=== PATIENT | male | born 1965 | race Caucasian/White ===

== ENCOUNTER 2020-04-29 15:32 | Emergency (ER) | payer BC, SELFPAY ==
[2020-04-29 16:02] VITALS: BP 000/00; PULSE 0; RESP 0; TEMP -17.7; TEMP 0; O2SAT 0; BMI 41.5
[2020-04-29 16:21] VITALS: BP 139/73; PULSE 80; RESP 19; TEMP 36.8; O2SAT 98; BMI 33.5
[2020-04-29 16:24] VITALS: BP 139/73; PULSE 80; RESP 19; TEMP 36.8; O2SAT 98
--- NOTE | 2020-04-29 16:27 | HMH.EDUTC ---
[facility] [place] Clinical Impression: Cough Allergic rhinitis Qualifiers: Allergic rhinitis trigger: unspecified Allergic rhinitis seasonality: unspecified Qualified Code(s): J30.9 - Allergic rhinitis, unspecified Disposition: Home, Self-Care Condition on Discharge: Good Instructions: Cough, Allergic Rhinitis, DI for Allergic Rhinitis Additional Instructions: *Monitor Temp, Over the counter Motrin or Tylenol as directed/as needed Tylenol every 4 hours and Motrin every 6 hours (as long as your family doctor has told you that you can take it) for fever or pain. and straight to ER if unable to lower temp less than 101.0 after medication given *Warm salt water gargles may help to soothe the throat *Throat Lozenges *Warm fluids like tea with honey may help to soothe the throat *Sleep elevated *Humidifier/Vaporizer *Flonase 2 sprays in each nostril daily but be aware that it may take 2-3 days before you notice improvement Follow up IMMEDIATELY for new or worsening symptoms or no Noticeable improvement over the next 48-72 hours. 911 for difficulty breathing or swallowing Prescriptions: Fluticasone Propionate [Flonase 50mcg nasal spray 16gm] 1 spr NS DAILY #1 bottle Prescription Printed Benzonatate [Tessalon Perle 100mg Cap*] 100 mg PO TID PRN #15 cap PRN Reason: Cough Prescription Printed Referrals: PCPMonica [Primary Care Provider] - Time of Disposition: 16:39 Medical Decision Making - Kodi Inquiry Pt receiving controlled substance: No [place]odi was queried for this patient: No Vital Signs: 04/29/20 16:02 04/29/20 16:21 04/29/20 16:24 Temperature 0 F L 98.2 F 98.2 F Temperature Source Oral Oral Pulse Rate 80 Pulse Rate [Left] 0 L 80 Respiratory Rate 0 L 19 19 Blood Pressure 139/73 Blood Pressure [Right Arm] 000/00 L 139/73 Blood Pressure Mean [Right Arm] 95 Blood Pressure Source [Right Arm] Automatic Cuff Automatic Cuff Blood Pressure Position [Right Arm] Sitting Sitting 02 Sat by Pulse Oximetry 0 L 98 Oxygen Delivery Method Room Air Room Air Medical Decision Narrative: discussed COVID testing and patient declined at this time state that he is not feeling ill and recently had two negative test [facility] [place] - General Stated complaint: Chest congestion Time Seen by Provider: 04/29/20 16:27 Mode of Arrival: Ambulatory Source of Information: Patient Limitations: No Limitations Description of Symptoms (Recalled from Triage Doc. by RN): Cough, congestion HEENT Symptoms (Recalled from RN notes): No Resp Symptoms (Recalled from RN notes): Yes Skin Symptoms (Recalled from RN notes): No MS Symptoms (Recalled from RN notes): No Functional Status (Recalled from RN notes): wnl - History of Present Illness Provider Complaint: Patient states that he was on quaratine from work and has two negative test with the last being about 4-5 days ago States that he was at work and has been having problems with his allergies and he coughed and they made him leave and go get checked Denies fever, denies feeling ill, denies sore throat report clear drainage from his nose - Related Data Previous Rx's Medication Instructions Recorded Benzonatate [Tessalon Perle 100mg 100 mg PO TID PRN #15 cap 04/29/20 Cap*] Fluticasone Propionate [Flonase 1 spr NS DAILY #1 bottle 04/29/20 50mcg nasal spray 16gm] - Worker's Comp Is this a Worker's Comp case?: No Is this an [facility] Worker's Comp?: No Is this a [place] Worker's Comp?: No [facility] History - Hepatitis A Screen Drug use history?: No High risk sexual behaviors?: No History of sexually transmitted infection?: No Currently employed?: No Childcare worker?: No Do you have indoor plumbing?: Yes Do you have electricity?: Yes Attestation statement:: This patient has been screened for Hepatitis A risk factors. I have reviewed the patient's past medical history: Yes - Social History Smoking Status: Never smoker Alcohol Intake: never Occupational Status:
== END 2020-04-29 16:41 | disposition home or self-care (01) ==
PROVIDERS: Emergency Provider Nurse Practitioner
DX: J30.9 Allergic rhinitis, unspecified (principal)
CPT/HCPCS: 99201

== ENCOUNTER → 2020-08-02 13:17 | Outpatient (CLI) | payer BC, SELFPAY ==
--- NOTE | 2020-08-02 13:45 | MR_ITS ---
PROCEDURE: MR SHOULDER RT WO/W CON CLINICAL INDICATION: SOFT TISSUE MASS RT SHOULDER PT has a large soft tissue lump to the lateral rt shoulder that he states came up roughly 2 weeks ago. COMPARISON: No exams were available for comparison TECHNIQUE: Routine multiplanar multi echo sequences are performed without gadolinium enhancement. FINDINGS: There is 8x 5 by 4 cm soft tissue within the right deltoid muscle laterally. This is hyperintense on T1 and becomes hypointense on the fat sat images consistent with a lipoma. No concerning characteristics. This is smooth in nature. This is causing expansion of the muscle. Osteoarthritic changes are present involving the acromioclavicular joint. There is mild subacromial narrowing anteriorly with some thinning the supraspinatus tendon anteriorly and suggestion of a partial tear at the insertion on the greater tuberosity. The infraspinatus, subscapularis, and teres minor tendons are intact. The bicipital tendon is in place. No evidence labral tear. IMPRESSION: 1. 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 2. Acromioclavicular arthropathy with subacromial stenosis and suspected partial tear of the supraspinatus tendon anteriorly Dictated by: Jair Rose MD 08/04/2020 11:08 Jair Rose MD in [place] 08/04/2020 11:08
[2020-08-02 13:49] LABS: Blood Urea Nitrogen 15 mg/dl (9-20); Estimated Glomerular Filt Rate 78 ml/min (>60); GFR (African American) 94 ML/MIN (>60)
== END ==
PROVIDERS: Visit Provider Orthopaedic Surgery
DX: M75.91 Shoulder lesion, unspecified, right shoulder (principal)
CPT/HCPCS: 36415; 73223; 82565; 84520; A9576

== ENCOUNTER 2023-03-13 10:04 | Emergency (ER) | payer OTHER, SELFPAY ==
--- NOTE | 2023-03-13 10:02 | ECG_ITS ---
APPROVED REPORT Exam: Resting ECG HR:78 bpm ECG Measurements Heart Rate 78 AXES MS 163 P 76 QRSd 107 QRS 55 QT 339 T 48 QTc 372 Conclusion SINUS RHYTHM INCOMPLETE RIGHT BUNDLE BRANCH BLOCK [90+ ms QRS DURATION, TERMINAL R IN V1/V2, 40+ ms S IN I/aVL/V4/V5/V6] BORDERLINE ECG UNCONFIRMED REPORT Electronically signed by : Anuj Mix MD 03/15/2023 08:34:02
[2023-03-13 10:04] VITALS: BP 146/68; PULSE 76; RESP 20; TEMP 36.5; O2SAT 96; BMI 34.4
--- NOTE | 2023-03-13 10:22 | PC.NURSE ---
Dr. Dejesus at [facility] for pt eval
--- NOTE | 2023-03-13 10:25 | XR_ITS ---
PROCEDURE INFORMATION: Exam: XR Chest Exam date and time: 03/13/2023 10:49 AM Age: 57 years old Clinical indication: Cough; Additional info: Cough, congestion TECHNIQUE: Imaging protocol: Radiologic exam of the chest. Views: 1 view. COMPARISON: MR SHOULDER RT WO/W CON 08/02/2020 2:00 PM FINDINGS: Lungs: Unremarkable. No consolidation. Pleural spaces: Unremarkable. No pleural effusion. No pneumothorax. Heart/Mediastinum: Unremarkable. No cardiomegaly. Bones/joints: Unremarkable. IMPRESSION: No acute findings.
[2023-03-13 10:30] VITALS: BP 128/70; PULSE 72; RESP 18; O2SAT 95
[2023-03-13 10:32] LABS: Influenza A, PCR Not Detected (NotDetected); Influenza B, PCR Not Detected (NotDetected)
--- NOTE | 2023-03-13 10:33 | HMH.EDGENADL ---
Discharge Plan Disposition Patient Disposition: Home, Self-Care Condition: Good Prescriptions Prescriptions: New ondansetron 4 mg tablet,disintegrating 4 mg PO Q8H 4 Days Qty: 12 1RF No Action benzonatate 100 MG capsule 100 mg PO TID PRN (Reason: Cough) Qty: 15 0RF fluticasone propionate 120 SPR/BOT bottle 1 spr NS DAILY Qty: 1 0RF Rx Instructions: each nostril daily Referrals Follow up/Referrals: Provider,Referral, MD [Primary Care Provider] - See instructions Activity Restrictions/Add. Instructions Additional Instructions/Restrictions: Please follow-up with your primary care provider. Please return to the emergency department if you develop any new or worsening symptoms or become concerned for your health. As we discussed, you can continue to use Tylenol, ibuprofen every 6 hours as needed for body aches/pains, fever. Clinical Impressions Clinical Impression: COVID-19 virus infection, Congested nose Cough Qualifiers: Cough type: acute Qualified Code(s): R05.1 - Acute cough Instructions Patient Instructions: DI for COVID-19 (Suspected or Confirmed ) Discharge ED Provider: Osbaldo Dejesus I General Adult HPI General Chief complaint: Upper Respiratory Infection Stated complaint: Congestion Time Seen by Provider: 03/13/23 10:14 History of Present Illness HPI narrative: Patient is a 57-year-old male with no other medical history presenting to the emergency department with several day history of cough, congestion. History was conducted with the patient at bedside. Patient reports over the past several days he has had a cough productive of clear phlegm. He is also felt congestion in his chest as well as nasal congestion, some mild intermittent headaches secondary to congestion. He has also had some intermittent body aches. He reports that he has been taking Mucinex DM at home which has improved his symptoms. He does report some chest congestion but denies any chest pain, shortness of breath, difficulty breathing, syncope, lightheadedness, dizziness. Also denies fevers at home. He has not taken any other medications at home. He does report feeling mildly nauseous secondary to phlegm but has not had any episodes of vomiting, denies abdominal pain, no episodes of diarrhea. Related Data Previous Rx's Medication Instructions Recorded benzonatate 100 mg capsule 100 mg PO TID PRN Cough #15 caps 04/29/20 fluticasone propionate 50 1 spr NS DAILY ##1 12/07/20 mcg/actuation nasal spray,suspension ondansetron 4 mg disintegrating 4 mg PO Q8H 4 days #12 tabs 03/13/23 tablet Allergies Allergy/AdvReac Type Severity Reaction Status Date / Time No Known Allergies Allergy Verified 04/29/20 16:40 [facility] Disclaimer: The information contained in this section may have been updated after the patient was seen, as this information can be updated by other users. Social History Smoking Status: Never smoker second hand exposure: No alcohol intake: never current occupational status: other Travel in the last 8 weeks: None ROS Obtained: Yes All systems reviewed & no additional complaints except as documented Physical Exam General General appearance: alert and in no apparent distress Head Head exam: atraumatic and normocephalic ENT ENT exam: Present normal exam Neck Neck exam: Present full ROM Chest Chest inspection: Present normal inspection and symmetric chest wall rise Respiratory Respiratory exam: Present normal lung sounds bilaterally; Absent respiratory distress or accessory muscle use Cardiovascular Cardiovascular exam: Present regular rate and normal rhythm Abdominal Exam Abdominal exam: Present soft; Absent distention, tenderness, guarding or rebound Extremities Exam Extremities exam: Present normal inspection and full ROM Neurological Exam Neurological exam: Present alert and oriented X3 Psychiatric Psychiatric exam: Present normal affect Skin Skin exam
[2023-03-13 10:57] LABS: Coronavirus 19, PCR Detected (NotDetected)
[2023-03-13 11:15] VITALS: BP 137/75; PULSE 68; RESP 17; TEMP 36.9; O2SAT 96
== END 2023-03-13 11:16 | disposition home or self-care (01) ==
PROVIDERS: Emergency Provider Emergency Medicine
DX: U07.1 COVID-19 (principal); R05.1 Acute cough
CPT/HCPCS: 71045; 87636; 93005; 99283; 99284

== ENCOUNTER 2024-08-22 20:55 | Emergency (ER) | payer OTHER, SELFPAY ==
[2024-08-22] VITALS (8 sets, daily range): BP systolic 117–185; BP diastolic 79–104; PULSE 71–86; RESP 18; TEMP 36.7; O2SAT 95–96; BMI 38.1
--- NOTE | 2024-08-22 21:36 | ED_ITS ---
Discharge Plan Disposition Patient Disposition: Home, Self-Care Condition: Good Prescriptions Prescriptions: No Action benzonatate 100 MG capsule 100 mg PO TID PRN (Reason: Cough) Qty: 15 0RF fluticasone propionate 120 SPR/BOT bottle 1 spr NS DAILY Qty: 1 0RF Rx Instructions: each nostril daily ondansetron 4 mg tablet,disintegrating 4 mg PO Q8H 4 Days Qty: 12 1RF Referrals Follow up/Referrals: Oscar Moore MD [Primary Care Provider] - See instructions Activity Restrictions/Add. Instructions Additional Instructions/Restrictions: Please take the medications your pcp prescribed. Please return with any new or worsening symptoms. Clinical Impressions Clinical Impression: Enteritis Print Language Print Language: Mexican Discharge ED Provider: Dilan Alfred Adult HPI <TARI Mayer - Last Filed: 08/22/24 21:48> General Chief complaint: Upper Respiratory Infection Stated complaint: vomiting,nausea,weakness Time Seen by Provider: 08/22/24 21:36 Mode of Arrival: Ambulatory Source of Information: Patient Description of Symptoms (Recalled from ER Triage Doc. by RN): C/o runny nose, cough with shortness of breath, abd pain with diarrhea, headache x 4 days. Seen family md tested negative for flu and covid. previous bowel obstruction History of Present Illness HPI narrative: Patient presents for evaluation of 5 days of nausea vomiting and diarrhea. Patient states that his symptoms began Wednesday night into Wednesday. He has had too numerous to count watery stools he has been nauseated and vomiting. He is occasionally able to keep down oral intake. He denies fever shortness of breath chest pain hemoptysis hematochezia melena hematemesis hematuria. He is on no home medications and has had no abdominal surgeries. Related Data Previous Rx's ?Medication ?Instructions ?Recorded benzonatate 100 mg capsule 100 mg PO TID PRN Cough #15 caps 04/29/20 fluticasone propionate 50 1 spr NS DAILY ##1 04/29/20 mcg/actuation nasal spray,suspension ondansetron 4 mg disintegrating 4 mg PO Q8H 4 days #12 tabs 03/13/23 tablet Allergies Allergy/AdvReac Type Severity Reaction Status Date / Time No Known Allergies Allergy Verified 04/29/20 16:40 PFSH <TARI Mayer - Last Filed: 08/22/24 21:48> [facility] Disclaimer: The information contained in this section may have been updated after the patient was seen, as this information can be updated by other users. Social History Smoking Status: Never smoker second hand exposure: No alcohol intake: never current occupational status: other Travel in the last 8 weeks: None Have you lived/traveled outside [place] in past 30 days?: No Contact w/someone who lives/traveled outside US past 30 days?: No Exposure to someone with infectious disease in past 14 days?: No Do you have a fever (greater than 100.4 F or 38 C)?: No Have you tested positive for COVID-19: No Exposed to someone with COVID-19 in past 14 days?: No Do you have a sore throat?: No Do you have a cough?: No Do you have any weakness?: No Do you have any diarrhea?: No Are you experiencing any unusual bleeding?: No Do you have any muscle aches/pain?: No Do you have any abdominal pain?: No Are you experiencing loss of taste or smell?: No <TARI Mayer - Last Filed: 08/22/24 21:48> ROS Obtained: Yes Systems reviewed as appropriate & no additional complaints except as documented Physical Exam <TARI Mayer - Last Filed: 08/22/24 21:48> General General appearance: alert and in no apparent distress Respiratory Respiratory exam: Present normal lung sounds bilaterally Cardiovascular Cardiovascular exam: Present regular rate Neurological Exam Neurological exam: Present alert and oriented X3 Medical Decision Making <TARI Mayer - Last Filed: 08/22/24 21:48> Medical Records Medical records reviewed: Yes I reviewed the patient's medical records. Screening: Per USPSTF and CDC recommendations, given the prevalence of disease in our region, it is our hospital?s policy to screen for HIV and viral Hepatitis for all patients aged 18 and over and those with ongoing risk factors. [place]odi Inquiry Pt receiving controlled substance: No Vital Signs: 08/22/24 21:07 08/22/24 21:30 08/22/24 22:20 Temperature 98.1 F Temperature Source Oral Pulse Rate 81 Pulse Rate [Right Brachial] 86 Respiratory Rate 18 Blood Pressure 144/99 H 125/90 Blood Pressure [Right Arm] 132/87 Blood Pressure Mean 114 Blood Pressure Mean [Right Arm] 102 Blood Pressure Source [Right Arm] Automatic Cuff Blood Pressure Position [Right Arm] Sitting 02 Sat by Pulse Oximetry 96 95 Oxygen Delivery Method Room Air 08/22/24 22:31 08/22/24 22:43 08/22/24 23:00 Temperature Temperature Source Pulse Rate 74 74 76 Pulse Rate [Right Brachial] Respiratory Rate Blood Pressure 185/104 H 138/86 130/79 Blood Pressure [Right Arm] Blood Pressure Mean Blood Pressure Mean [Right Arm] Blood Pressure Source [Right Arm] Blood Pressure Position [Right Arm] 02 Sat by Pulse Oximetry 95 95 95 Oxygen Delivery Method 08/22/24 23:15 08/22/24 23:30 08/23/24 00:13 Temperature 97.9 F Temperature Source Pulse Rate 71 71 67 Pulse Rate [Right Brachial] Respiratory Rate 20 Blood Pressure 117/80 132/83 117/78 Blood Pressure [Right Arm] Blood Pressure Mean Blood Pressure Mean [Right Arm] Blood Pressure Source [Right Arm] Blood Pressure Position [Right Arm] 02 Sat by Pulse Oximetry 95 95 Oxygen Delivery Method Room Air Lab Data Lab results reviewed: Yes I reviewed the patient's lab results. Lab Results 08/22/24 21:40: WBC 12.4 H, RBC 6.12, Hgb 14.6, Hct 45.2, MCV 73.9 L, MCH 23.9 L , MCHC 32.3, RDW 13.6, Plt Count 291, MPV 12.5 H, Neut % (Auto) 78.5, Lymph % (Auto) 13.8, [place] % (Auto) 6.8, Eos % (Auto) 0.2, Baso % (Auto) 0.2, Neut # (Auto) 9.8 H, Lymph # (Auto) 1.7, [place] # (Auto) 0.8, Eos # (Auto) 0.0, Baso # (Auto) 0.0, Sodium 139, Potassium 3.5, Chloride 105, Carbon Dioxide 24, Anion Gap 13.5, BUN 18, Creatinine 1.40 H, Estimated Creat Clear 98, Estimated GFR 52 L, Est GFR ( Amer) 63, Glucose 121 H, Calcium 9.1, Magnesium 1.7, Total Bilirubin 0.7, AST 75 H, ALT 82 H, Alkaline Phosphatase 139 H, Total Protein 7.9, Albumin 4.2, Globulin 3.7 H, Albumin/Globulin Ratio 1.1, Procalcitonin 0.163 08/22/24 21:40 08/22/24 21:40 Orders (Tests/Meds): ED MEDICATIONS Discontinued Medications Generic Name Dose Route Start Last Admin Trade Name Freq PRN Reason Stop Dose Admin Acetaminophen 1,000 mg 08/22/24 21:43 08/22/24 21:51 Acetaminophen 1,000mg/100ml Vial IV 08/22/24 21:44 1,000 mg ONCE ONE Administration Sodium Chloride 1,000 mls @ 999 mls/hr 08/22/24 21:43 08/22/24 21:51 Sod Chlor 0.9% 1000ml Bag IV 08/22/24 22:43 999 mls/hr .Q1H1M ONE Administration Iopamidol 75 ml 08/22/24 22:17 08/22/24 22:18 Iopamidol-370 (76%);100ml Bottle IV 08/22/24 22:18 75 ml ONCE ONE Administration Ondansetron HCl 4 mg 08/22/24 21:43 08/22/24 21:51 Ondansetron 4mg/2ml Vial IV 08/22/24 21:44 4 mg ONCE ONE Administration Sodium Chloride 10 ml 08/22/24 22:17 08/22/24 22:18 Sodium Chloride 0.9% 10ml Syr (Rad Only) IV 09/21/24 22:16 10 ml NEEDED PRN Administration Maintain IV Site ORDERS Category Date Time Status CT abdomen pelvis w con Stat Cat Scan 08/22/24 21:43 Completed CBC w/Auto Diff [Complete Blood Count Auto Diff] Stat Lab 08/22/24 21:40 Completed CMP [Comprehensive Metabolic Panel] Stat Lab 08/22/24 21:40 Completed Magnesium Stat Lab 08/22/24 21:40 Completed Procalcitonin Stat Lab 08/22/24 21:40 Completed Medical Decision Narrative: In summary patient is a 59-year-old male who presents to the emergency department for evaluation of 5 days of nausea vomiting and diarrhea. Patient is normotensive with a blood pressure 132/87 pulse 86 normal sinus rhythm on the bedside monitor breathing 18 times a minute satting at 96% on room air upon arrival, afebrile at 90.1. Physical exam is remarkable for mild diffuse abdominal discomfort on palpation with a distended abdomen however his abdomen is soft without rebound or guarding or rigidity. Bowel sounds hyperactive.. Differential diagnosis includes viral bacterial gastroenteritis versus bowel obstruction versus appendicitis versus cholecystitis versus urinary tract infection etc. Initial workup will be conducted with hematologic labs urinalysis CT scan abdomen pelvis diarrhea panel.. Initial interventions include crystalloid bolus and Zofran for now. Initial workup ordered and pending at the time of handoff to Dr. Alfred at 2200 hrs. <Dilan Alfred MD - Last Filed: 08/23/24 16:45> Vital Signs: 08/22/24 21:07 08/22/24 21:30 08/22/24 22:20 Temperature 98.1 F Temperature Source Oral Pulse Rate 81 Pulse Rate [Right Brachial] 86 Respiratory Rate 18 Blood Pressure 144/99 H 125/90 Blood Pressure [Right Arm] 132/87 Blood Pressure Mean 114 Blood Pressure Mean [Right Arm] 102 Blood Pressure Source [Right Arm] Automatic Cuff Blood Pressure Position [Right Arm] Sitting 02 Sat by Pulse Oximetry 96 95 Oxygen Delivery Method Room Air 08/22/24 22:31 08/22/24 22:43 08/22/24 23:00 Temperature Temperature Source Pulse Rate 74 74 76 Pulse Rate [Right Brachial] Respiratory Rate Blood Pressure 185/104 H 138/86 130/79 Blood Pressure [Right Arm] Blood Pressure Mean Blood Pressure Mean [Right Arm] Blood Pressure Source [Right Arm] Blood Pressure Position [Right Arm] 02 Sat by Pulse Oximetry 95 95 95 Oxygen Delivery Method 08/22/24 23:15 08/22/24 23:30 08/23/24 00:13 Temperature 97.9 F Temperature Source Pulse Rate 71 71 67 Pulse Rate [Right Brachial] Respiratory Rate 20 Blood Pressure 117/80 132/83 117/78 Blood Pressure [Right Arm] Blood Pressure Mean Blood Pressure Mean [Right Arm] Blood Pressure Source [Right Arm] Blood Pressure Position [Right Arm] 02 Sat by Pulse Oximetry 95 95 Oxygen Delivery Method Room Air Lab Data Lab Results 08/22/24 21:40: WBC 12.4 H, RBC 6.12, Hgb 14.6, Hct 45.2, MCV 73.9 L, MCH 23.9 L , MCHC 32.3, RDW 13.6, Plt Count 291, MPV 12.5 H, Neut % (Auto) 78.5, Lymph % (Auto) 13.8, [place] % (Auto) 6.8, Eos % (Auto) 0.2, Baso % (Auto) 0.2, Neut # (Auto) 9.8 H, Lymph # (Auto) 1.7, [place] # (Auto) 0.8, Eos # (Auto) 0.0, Baso # (Auto) 0.0, Sodium 139, Potassium 3.5, Chloride 105, Carbon Dioxide 24, Anion Gap 13.5, BUN 18, Creatinine 1.40 H, Estimated Creat Clear 98, Estimated GFR 52 L, Est GFR ( Amer) 63, Glucose 121 H, Calcium 9.1, Magnesium 1.7, Total Bilirubin 0.7, AST 75 H, ALT 82 H, Alkaline Phosphatase 139 H, Total Protein 7.9, Albumin 4.2, Globulin 3.7 H, Albumin/Globulin Ratio 1.1, Procalcitonin 0.163 Orders (Tests/Meds): ED MEDICATIONS Discontinued Medications Generic Name Dose Route Start Last Admin Trade Name Freq PRN Reason Stop Dose Admin Acetaminophen 1,000 mg 08/22/24 21:43 08/22/24 21:51 Acetaminophen 1,000mg/100ml Vial IV 08/22/24 21:44 1,000 mg ONCE ONE Administration Sodium Chloride 1,000 mls @ 999 mls/hr 08/22/24 21:43 08/22/24 21:51 Sod Chlor 0.9% 1000ml Bag IV 08/22/24 22:43 999 mls/hr .Q1H1M ONE Administration Iopamidol 75 ml 08/22/24 22:17 08/22/24 22:18 Iopamidol-370 (76%);100ml Bottle IV 08/22/24 22:18 75 ml ONCE ONE Administration Ondansetron HCl 4 mg 08/22/24 21:43 08/22/24 21:51 Ondansetron 4mg/2ml Vial IV 08/22/24 21:44 4 mg ONCE ONE Administration Sodium Chloride 10 ml 08/22/24 22:17 08/22/24 22:18 Sodium Chloride 0.9% 10ml Syr (Rad Only) IV 09/21/24 22:16 10 ml NEEDED PRN Administration Maintain IV Site ORDERS Category Date Time Status CT abdomen pelvis w con Stat Cat Scan 08/22/24 21:43 Completed CBC w/Auto Diff [Complete Blood Count Auto Diff] Stat Lab 08/22/24 21:40 Completed CMP [Comprehensive Metabolic Panel] Stat Lab 08/22/24 21:40 Completed Magnesium Stat Lab 08/22/24 21:40 Completed Procalcitonin Stat Lab 08/22/24 21:40 Completed Medical Decision Narrative: In summary patient is a 59-year-old male who presents to the emergency department for evaluation of 5 days of nausea vomiting and diarrhea. Patient is normotensive with a blood pressure 132/87 pulse 86 normal sinus rhythm on the bedside monitor breathing 18 times a minute satting at 96% on room air upon arrival, afebrile at 90.1. Physical exam is remarkable for mild diffuse abdominal discomfort on palpation with a distended abdomen however his abdomen is soft without rebound or guarding or rigidity. Bowel sounds hyperactive.. Differential diagnosis includes viral bacterial gastroenteritis versus bowel obstruction versus appendicitis versus cholecystitis versus urinary tract infection etc. Initial workup will be conducted with hematologic labs urinalysis CT scan abdomen pelvis diarrhea panel.. Initial interventions include crystalloid bolus and Zofran for now. Initial workup ordered and pending at the time of handoff to Dr. Alfred at 2200 hrs. I was consulted by the VITOR, and we discussed the complexity of the problems being addressed.I approved the treatment and management plan for this patient?s care in the Emergency Department, thus performing a substantive portion of the medical decision making.Signed, Dilan Alfred MD RAMON Dilan Alfred MD RAMON: I assumed care of this patient from the VITOR. Labs reveal leukocytosis to 12.4, creatinine 1.40, liver enzymes mildly elevated. CT independently visualized and interpreted by me significant for findings consistent with enteritis. Patient reports improvement of symptoms upon repeat evaluation. He is stable for discharge at this time. Return precautions given. Critical Care <TARI Mayer - Last Filed: 08/22/24 21:48> Critical Care Time Critical Care Time: No
--- NOTE | 2024-08-22 21:43 | CT_ITS ---
PROCEDURE INFORMATION: Exam: CT Abdomen And Pelvis With Contrast Exam date and time: 08/22/2024 10:15 PM Age: 59 years old Clinical indication: Nausea and vomiting; Additional info: 5 days of nausea vomiting diarrhea TECHNIQUE: Imaging protocol: Computed tomography of the abdomen and pelvis with contrast. Radiation optimization: All CT scans at this facility use at least one of these dose optimization techniques: automated exposure control; mA and/or kV adjustment per patient size (includes targeted exams where dose is matched to clinical indication); or iterative reconstruction. Contrast material: ISOVUE; Contrast volume: 75 ml; Contrast route: IV; COMPARISON: CR XR CHEST PORTABLE 03/13/2023 10:49 AM FINDINGS: Liver: Normal. No mass. Gallbladder and biliary ducts: Contracted gallbladder with punctate gallstone. Pancreas: Normal. No ductal dilation. Spleen: Normal. No splenomegaly. Adrenal glands: Normal. No mass. Kidneys and ureters: Normal. No hydronephrosis. Stomach and bowel: Mildly dilated fluid-filled small bowel without focal transition point. Appendix: No evidence of appendicitis. Intraperitoneal space: Unremarkable. No free air. No significant fluid collection. Vasculature: Unremarkable. No abdominal aortic aneurysm. Lymph nodes: Unremarkable. No enlarged lymph nodes. Urinary bladder: Unremarkable as visualized. Reproductive: Unremarkable as visualized. Bones/joints: Unremarkable. No acute fracture. Soft tissues: Umbilical hernia containing fat. IMPRESSION: Findings consistent with enteritis.
[2024-08-22 21:49] LABS: Basophils % 0.2 % (0.1-2.0); Eosinophils % 0.2 % (0.1-12.0); Hematocrit 45.2 % (42.0-52.0); Hemoglobin 14.6 g/dL (14.1-18.0); Lymphocytes # 1.7 K/mm3 (0.7-4.5); Lymphocytes % 13.8 % (10-50); Mean Corpuscular HGB Conc 32.3 g/dL (31.8-35.4); Mean Corpuscular Hemoglobin 23.9 pg (27.0-31.2); Mean Corpuscular Volume 73.9 fl (80-94); Mean Platelet Volume 12.5 fl (7.4-10.4); Monocytes # 0.8 K/mm3 (0.1-1.0); Monocytes % 6.8 % (1.7-9.3); Neutrophils # 9.8 K/mm3 (1.8-7.8); Neutrophils % 78.5 % (37.0-80.0); Platelet Count 291 K/mm3 (142-424); Red Blood Count 6.12 M/mm3 (4.60-6.20); Red Cell Distribution Width 13.6 % (11.5-17.5); White Blood Count 12.4 K/mm3 (4.8-10.8)
[2024-08-22] MEDS: ACETAMINOPHEN 1,000MG/100ML VIAL 1000 MG IV (21:51)
[2024-08-22] MEDS: 0.9 % SODIUM CHLORIDE 1000ML 1,000 ML 999 ML IV (21:51)
[2024-08-22] MEDS: ONDANSETRON 4MG/2ML VIAL 4 MG IV (21:51)
[2024-08-22 21:56] LABS: Albumin Level 4.2 g/dl (3.5-5.0); Chloride 105 mmol/L (98-107)
[2024-08-22 21:57] LABS: Potassium 3.5 mmoL/L (3.5-5.1); Sodium 139 mmol/L (136-145)
[2024-08-22 21:59] LABS: Alanine Aminotransferase 82 U/L (12-78); Albumin/Globulin Ratio 1.1 (1.1-1.8); Alkaline Phosphatase 139 U/L (38-126); Anion Gap 13.5 mEq/L (5-15); Aspartate Amino Transferase 75 U/L (17-59); Bilirubin,Total 0.7 mg/dl (0.2-1.3); Blood Urea Nitrogen 18 mg/dl (9-20); Carbon Dioxide 24 mmol/L (22.0-30.0); Creatinine Clearance Estimated 98 mL/min (50-200); Estimated Glomerular Filt Rate 52 ml/min (>60); GFR (African American) 63 ML/MIN (>60); Globulin 3.7 g/dL (1.3-3.2); Total Protein,Serum 7.9 g/dl (6.3-8.2)
[2024-08-22 22:00] LABS: Calcium 9.1 mg/dl (8.4-10.2); Glucose 121 mg/dl (74-100); Magnesium 1.7 mg/dl (1.6-2.3)
[2024-08-22] MEDS: SODIUM CHLORIDE 0.9% 10ML SYR (RAD ONLY) 10 ML IV (22:18)
[2024-08-22] MEDS: IOPAMIDOL-370 (76%);100ML BOTTLE 75 ML IV (22:18)
[2024-08-22 22:28] LABS: Procalcitonin 0.163 ng/mL (0.0-2.0)
[2024-08-23 00:13] VITALS: BP 117/78; PULSE 67; RESP 20; TEMP 36.6; O2SAT 96
== END 2024-08-23 00:30 | disposition home or self-care (01) ==
PROVIDERS: Physician Assistant; Emergency Provider Emergency Medicine; PCP Social Worker
DX: K52.0 Gastroenteritis and colitis due to radiation (principal)
CPT/HCPCS: 74177; 80053; 83735; 84145; 85025; 96374; 96375; 99285; J0131; J2405; J7030; Q9967